=== PATIENT | male | born 1970 | race Caucasian/White ===

== ENCOUNTER 2017-01-11 11:55 | Emergency (ER) | payer MEDICAID ==
[~2017-01-11] VITALS: Ht 185.4 cm; Wt 109.9 kg
[2017-01-11 11:58] VITALS: BP 161/94
== END 2017-01-11 13:08 | disposition home or self-care (01) ==
LOC: ED 12:50
DX: K08.89 Other specified disorders of teeth and supporting structures (principal); M54.5 Low back pain
CPT/HCPCS: 99283

== ENCOUNTER → 2017-02-02 | Outpatient (CLI) | payer MEDICAID | END | disposition home or self-care (01) | LOC: RAD 13:07 | PROVIDERS: ATTEND Physician Assistant | DX: M50.322 Other cervical disc degeneration at C5-C6 level (principal); M48.02 Spinal stenosis, cervical region; M47.892 Other spondylosis, cervical region | CPT/HCPCS: 72050 ==

== ENCOUNTER 2018-05-12 13:30 | Emergency (ER) | payer MEDICAID ==
[~2018-05-12] VITALS: Ht 185.4 cm; Wt 103.0 kg
[2018-05-12 13:47] VITALS: BP 154/88
[2018-05-12] MEDS ORDERED: DEXAMETHASONE 4 MG/ML, 1ML ONE (15:00)
[2018-05-12] MEDS ORDERED: DEXAMETHASONE 4 MG/ML, 1ML PO ONE (15:00)
== END 2018-05-12 15:39 | disposition home or self-care (01) ==
LOC: ED 14:52
DX: J02.8 Acute pharyngitis due to other specified organisms (principal); B97.89 Other viral agents as the cause of diseases classified elsewhere
CPT/HCPCS: 87081; 87880; 99284; J1100